=== PATIENT | female | born 1940 | race Two or more races ===

== ENCOUNTER 2017-02-19 09:42 | Emergency (ER) | payer MEDICARE ==
[2017-02-19 09:43] VITALS: BMI 25.4
[2017-02-19] MEDS ORDERED: Morphine 4 MG/ML VIAL IV STA (10:48)
--- NOTE | 2017-02-19 11:26 | C.PDOC ---
History Of Present Illness 76 y/o female with Hx of Gastritis presents to ED with complaints of left sided pleuritic chest pain radiating to the left shoulder and upper back for 3 days. Patient also reports pain below left breast worse when coughing or taking deep breaths, associated with mild SOB. Patient denies abdominal pain, nausea/ vomiting, fever, chills, dizziness or any other complaints at this time. Chief Complaint (Nursing): Chest Pain History Per: Patient History/Exam Limitations: no limitations Onset/Duration Of Symptoms: Days Current Symptoms Are (Timing): Still Present Past Medical History Reviewed: Historical Data, Nursing Documentation, Vital Signs Vital Signs: Last Vital Signs Temp 98.3 F 02/19/17 12:27 Pulse 83 02/19/17 15:31 Resp 17 02/19/17 15:31 BP 140/62 02/19/17 15:31 Pulse Ox 97 02/19/17 15:31 - Medical History PMH: Gastritis Surgical History: No Surg Hx Family History: States: No Known Family Hx - Social History Hx Tobacco Use: No Hx Alcohol Use: No Hx Substance Use: No - Immunization History Hx Tetanus Toxoid Vaccination: No Hx Influenza Vaccination: No Hx Pneumococcal Vaccination: No Review Of Systems Except As Marked, All Systems Reviewed And Found Negative. Constitutional: Negative for: Fever, Chills Cardiovascular: Positive for: Chest Pain. Negative for: Palpitations Respiratory: Negative for: Shortness of Breath Gastrointestinal: Negative for: Nausea, Vomiting Musculoskeletal: Positive for: Back Pain Skin: Negative for: Rash Neurological: Negative for: Weakness, Numbness Physical Exam - Physical Exam Appears: Non-toxic, Other (uncomfortable) Skin: Warm, Dry, No Rash Head: Atraumatic, Normacephalic Eye(s): bilateral: Normal Inspection Oral Mucosa: Moist Neck: Normal ROM, No Midline Cervical Tenderness, No Paracervical Tenderness Chest: Symmetrical, Tenderness (left anterior chest wall) Cardiovascular: Rhythm Regular, No Murmur Respiratory: Normal Breath Sounds, No Rales, No Rhonchi, No Wheezing Gastrointestinal/Abdominal: Soft, No Tenderness, No Guarding, No Rebound Extremity: Normal ROM, Capillary Refill (<2 seconds), No Swelling Neurological/Psych: Oriented x3, Normal Speech, Normal Cognition, Normal Motor, Normal Sensation ED Course And Treatment - Laboratory Results Result Diagrams: 02/19/17 11:16 02/19/17 11:16 ECG: Interpreted By Me ECG Rhythm: Sinus Rhythm ECG Interpretation: No Acute Changes Rate From EC O2 Sat by Pulse Oximetry: 99 (RA) Pulse Ox Interpretation: Normal - Other Rad CXR X-Ray: Viewed By Me, Read By Radiologist Interpretation: Accession No. : [id number]. Patient Name / ID : ALVINO QUESADA / [id number]. Exam Date : 02/19/2017 10:48:10 ( Approved ). Study Comment : Sex / Age : F / 76Y. Creator : Siri Paulino MD. Dictator : Portable Feed Mill Operator : Poultry Process Worker : Siri Paulino MD. Approver2 : Report Date : 02/19/2017 11:43:17. My Comment : . HISTORY: CP. COMPARISON: Chest x- ray performed 06/12/13. TECHNIQUE: Chest, one view. FINDINGS: Examination limited by habitus. LUNGS: Mild biapical pleural thickening. No focal consolidation. Please note that chest x-ray has limited sensitivity for the detection of pulmonary masses. PLEURA: No significant pleural effusion identified. No definite pneumothorax . CARDIOVASCULAR: The cardiomediastinal silhouette appears within normal limits of size. OSSEOUS STRUCTURES: Degenerative changes. VISUALIZED UPPER ABDOMEN: Unremarkable. OTHER FINDINGS : None. IMPRESSION: No acute findings. See above. - CT Scan/US Chest CTA Other Rad Studies (CT/US): Read By Radiologist, Radiology Report Reviewed CT/US Interpretation: Accession No. : [id number]. Patient Name / ID : ALVINO QUESADA / [id number]. Exam Date : 02/19/2017 13:51:37 ( Approved ). Study Comment : Sex / Age : F / 76Y. Creator : Siri Paulino MD. Dictator : Portable Feed Mill Operator : Poultry Process Worker : Siri Paulino MD. Approver2 : Report Date : 02/19/2017 14:36:19. My Comment : . CTA chest PE protocol. Indication: Left pleuritic pain, elevated D-dimer. Technique: Contiguous axial images were obtained through the chest with intravenous contrast enhancement. Sagittal and coronal reconstructions were generated and reviewed. This CT exam was performed using 1 or more of the falling dose reduction techniques: Automated exposure control, adjustment of the MAA and/or kV according to patient size, and/or use of iterative reconstruction technique. IV Contrast: 100 mL Visipaque. . Radiation dose (DLP): 241.21 MGy-cm. Comparison: Chest x-ray performed 02/19/17. Findings: Visualized portions of the inferior thyroid gland appear unremarkable. The mediastinal and hilar vascular structures appear within normal limits. The heart appears within normal limits of size. No large central or segmental pulmonary embolus evident. No focal consolidation. No pleural effusion. No pneumothorax. 4 mm nodule, right lower lobe (series 4, image 73). No evidence of Type A thoracic aortic dissection. Faint linear lucency evident within the distal thoracic aorta extending into abdominal aorta; finding worrisome for acute dissection. Correlate clinically. Fluid within the distal esophagus may be seen in the setting of gastroesophageal reflux. Limited visualized portions of the upper abdomen appear grossly unremarkable. Osseous demineralization. Degenerative changes. Impression: Faint linear lucency which extends from the distal thoracic aorta and extends into the abdominal aorta worrisome for acute aortic dissection. No evidence of a type a dissection. Correlate clinically. 4 mm right lower lobe pulmonary nodule. In the absence of risk factors for lung cancer, no specific imaging follow-up is required. If the patient is a smoker or has other risk factors, follow-up CT at 12 months is recommended to document stability. No large central or segmental pulmonary embolus identified. Findings discussed with ARELI Hines on 02/19/17 at 2:31 p.m.. Progress Note: Blood work, ECG, UA, CXR, morphine. Patient sts she took Aspirin at home prior to arrival. Ddimer came back elevated, Chest CTA was irdered to r /o PE. Got a phone call from radiologist about critical finding on patient's CTA, findings are suspicious for acute aortic dissection. Case was d/ w Destiney Freire who recommended to transfer patient to the [facility] with Cardio- Thoracic surgery service. Call was placed to the [facility]. Spoke to transfer center and to Cardio-Thoracic surgeon who accepted patient to cardio-thoracic ICU for transfer. Spoke to the patient and to her daughter Tramaine ([phone]), agreed for transfer. Disposition - Disposition Disposition: Trans to Other Acute Care Hosp Disposition Time: 16:21 Condition: SERIOUS Forms: [employer] ([employer]) - Clinical Impression Clinical Impression: Aortic dissection, thoracoabdominal - PA / PHYSICIAN'S AIDE / Resident Statement MD/DO has reviewed & agrees with the documentation as recorded. - Scribe Statement The provider has reviewed the documentation as recorded by the Scribhumble Anguiano All medical record entries made by the Mariahibhumble were at my direction and personally dictated by me. I have reviewed the chart and agree that the record accurately reflects my personal performance of the history, physical exam, medical decision making, and the department course for this patient. I have also personally directed, reviewed, and agree with the discharge instructions and disposition.
[2017-02-19 11:29] LABS: BASO % 0.5 % (0.0-2.0); EOS # 0.2 K/uL (0.0-0.7); HEMATOCRIT 39.9 % (34.0-47.0); LYMPH # 2.8 K/uL (1.0-4.3); LYMPH % 34.6 % (20.0-40.0); MEAN CELL VOLUME 85.9 fL (81.0-99.0); MEAN CORPUSCULAR HEMOGLOBIN 28.6 pg (27.0-31.0); MEAN CORPUSCULAR HGB CONC 33.3 g/dL (33.0-37.0); MEAN PLATELET VOLUME 9.7 fL (7.2-11.7); MONO # 0.7 K/uL (0.0-0.8); MONO % 8.5 % (0.0-10.0); NRBC % 0.1 % (0.0-2.0)
[2017-02-19 11:35] LABS: RBC URINE < 1 /hpf (0-3); URINE BILIRUBIN NEGATIVE (NEGATIVE); URINE BLOOD NEGATIVE (NEGATIVE); URINE COLOR Yellow (YELLOW); URINE GLUCOSE (UA) NORMAL (Normal); URINE KETONE NEGATIVE (NEGATIVE); URINE LEUKOCYTE ESTERASE NEG Leu/uL (Negative); URINE PROTEIN NEGATIVE (NEGATIVE); URINE UROBILINOGEN NORMAL mg/dL (0.2-1.0); WBC URINE 1 /hpf (0-5)
[2017-02-19 11:49] LABS: CHLORIDE 102 mmol/L (98-107); SODIUM 141 mmol/L (132-148)
[2017-02-19 11:50] LABS: POTASSIUM 3.9 mmol/L (3.6-5.2)
[2017-02-19 11:51] LABS: GFR AFRICAN-AMERICAN > 60
[2017-02-19 11:52] LABS: ALKALINE PHOSPHATASE 85 U/L (38-126); ALT/SGPT 27 U/L (9-52); AST/SGOT 22 U/L (14-36); BILIRUBIN,TOTAL 0.5 mg/dL (0.2-1.3); BLOOD UREA NITROGEN 17 mg/dL (7-17); CARBON DIOXIDE 24 mmol/L (22-30); GLUCOSE,RANDOM 85 mg/dL (65-105); TOTAL PROTEIN 7.9 g/dL (6.3-8.3)
[2017-02-19] MEDS ORDERED: Iodixanol 320 MG/ML 100 ML BOTTLE IV ONE (13:37)
--- NOTE | 2017-02-19 14:38 | CT ---
CTA chest PE protocol Indication: Left pleuritic pain, elevated D-dimer Technique: Contiguous axial images were obtained through the chest with intravenous contrast enhancement. Sagittal and coronal reconstructions were generated and reviewed. This CT exam was performed using 1 or more of the falling dose reduction techniques: Automated exposure control, adjustment of the MAA and/or kV according to patient size, and/or use of iterative reconstruction technique. IV Contrast: 100 mL Visipaque Radiation dose (DLP): 241.21 MGy-cm. Comparison: Chest x-ray performed 02/19/17 Findings: Visualized portions of the inferior thyroid gland appear unremarkable. The mediastinal and hilar vascular structures appear within normal limits. The heart appears within normal limits of size. No large central or segmental pulmonary embolus evident. No focal consolidation. No pleural effusion. No pneumothorax. 4 mm nodule, right lower lobe (series 4, image 73). No evidence of Type A thoracic aortic dissection. Faint linear lucency evident within the distal thoracic aorta extending into abdominal aorta; finding worrisome for acute dissection. Correlate clinically. Fluid within the distal esophagus may be seen in the setting of gastroesophageal reflux. Limited visualized portions of the upper abdomen appear grossly unremarkable. Osseous demineralization. Degenerative changes. Impression: Faint linear lucency which extends from the distal thoracic aorta and extends into the abdominal aorta worrisome for acute aortic dissection. No evidence of a type a dissection. Correlate clinically. 4 mm right lower lobe pulmonary nodule. In the absence of risk factors for lung cancer, no specific imaging follow-up is required. If the patient is a smoker or has other risk factors, follow-up CT at 12 months is recommended to document stability. No large central or segmental pulmonary embolus identified. Findings discussed with ARELI Hines on 02/19/17 at 2:31 p.m..
--- NOTE | 2017-02-19 15:06 | RAD ---
HISTORY: CP COMPARISON: Chest x-ray performed 06/12/13 TECHNIQUE: Chest, one view. FINDINGS: Examination limited by habitus. LUNGS: Mild biapical pleural thickening. No focal consolidation. Please note that chest x-ray has limited sensitivity for the detection of pulmonary masses. PLEURA: No significant pleural effusion identified. No definite pneumothorax . CARDIOVASCULAR: The cardiomediastinal silhouette appears within normal limits of size. OSSEOUS STRUCTURES: Degenerative changes. VISUALIZED UPPER ABDOMEN: Unremarkable. OTHER FINDINGS: None. IMPRESSION: No acute findings. See above.
[2017-02-19 17:42] VITALS: BP 150/79; PULSE 79; RESP 13; TEMP 98.1; O2SAT 97
--- NOTE | 2017-02-20 14:28 | CARD ---
APPROVED REPORT EKG Measurement Heart [id number] <Conclusion> Normal sinus rhythm Normal ECG
== END 2017-02-19 17:53 | disposition short-term general hospital (02) ==
LOC: C.ER 09:42
DX: I71.03 Dissection of thoracoabdominal aorta (principal)
CPT/HCPCS: 71010; 71275; 80053; 81001; 82550; 82553; 84484; 85025; 85378; 85610; 85730; 93005; 96374; 99285; J2270; Q9967